=== PATIENT | male | born 1985 | race Caucasian/White ===

== ENCOUNTER 2019-08-28 16:48 | Emergency (ER) | payer SELFPAY ==
[2019-08-28 16:55] VITALS: BP 141/72; PULSE 86; TEMP 98.5; BMI 32.3
--- NOTE | 2019-08-28 16:55 | PDOC ---
Rapid Medical Evaluation Chief Complaint: Eye Problem Time Seen by Provider: 08/28/19 16:54 Medical Evaluation: 08/28/19 16:55 have performed a brief in-person evaluation of this patient. The patient presents with a chief complaint of: URI w/ b/l conjunctival erythema Pertinent physical exam findings:stable I have ordered the following:nothing The patient will proceed to the ED for further evaluation. Discharge Disposition - Diagnosis Conjunctivitis Qualifiers: Conjunctivitis type: unspecified Laterality: bilateral Qualified Code(s): H10.9 - Unspecified conjunctivitis - Referrals - Patient Instructions - Post Discharge Activity
[2019-08-28] MEDS ORDERED: ACETAMINOPHEN 500 MG TABLET (FP) PO ONE (17:19)
--- NOTE | 2019-08-28 17:19 | PDOC ---
History of Present Illness - General Chief Complaint: Eye Problem Stated Complaint: eye redness Time Seen by Provider: 08/28/19 16:54 - History of Present Illness Initial Comments: 08/28/19 17:16 33-year-old male without comorbidities presents for bilateral eye irritation sinus pressure and headache x1 day without systemic symptoms or changes in vision Past History - Past Medical History Allergies/Adverse Reactions: Allergies Allergy/AdvReac Type Severity Reaction Status Date / Time No Known Allergies Allergy Verified 08/28/19 16:55 Home Medications: Ambulatory Orders Budesonide [Rhinocort Allergy] 1 spray NS ONCE #1 spray.pump 08/28/19 Cetirizine HCl/Pseudoephedrine [Zyrtec-D Tablet] 1 each PO DAILY #30 tab.er.12h 08/28/19 COPD: No - Psycho Social/Smoking Cessation Hx Smoking History: Never smoked Information on smoking cessation initiated: No Hx Alcohol Use: No Drug/Substance Use Hx: No Review of Systems - Review of Systems Constitutional: No: Chills, Fever, Malaise, Night Sweats HEENTM: Yes: See HPI. No: Blurred Vision, Recent change in vision, Nose Congestion Neurological: Yes: Headache *Physical Exam - Vital Signs Last Vital Signs Temp Pulse Resp BP Pulse Ox 98.5 F 86 19 141/72 100 08/28/19 16:53 08/28/19 16:53 08/28/19 16:53 08/28/19 16:53 08/28/19 16:53 - Physical Exam 08/28/19 17:16 GENERAL: The patient is awake, alert, and fully oriented, in no acute distress. HEAD: Normal with no signs of trauma. EYES: sclera anicteric, conjunctiva mildly injected ENT: Ears normal tympanic membranes normal oropharynx clear uvula midline NECK: Normal range of motion LUNGS: Breath sounds equal, clear to auscultation bilaterally. No wheezes, and no crackles. HEART: S1 and S2 without murmur, rub or gallop. ABDOMEN: Soft, nontender, normoactive bowel sounds. No guarding, no rebound. No masses. EXTREMITIES: Normal range of motion, no edema. No clubbing or cyanosis. No cords, erythema, or tenderness. NEUROLOGICAL: Cranial nerves II through XII grossly intact. PSYCH: Normal mood, normal affect. SKIN: Warm, Dry, normal turgor, no rashes or lesions noted. Medical Decision Making - Medical Decision Making 08/28/19 17:16 Antihistamine eyedrops for allergic conjunctivitis steroidal nasal spray and decongestant follow-up with primary care physician Discharge - Discharge Information Problems reviewed: Yes Clinical Impression/Diagnosis: Allergic conjunctivitis, Allergic rhinitis, Headache Condition: Stable Disposition: HOME - Admission No - Additional Discharge Information Prescriptions: Budesonide [Rhinocort Allergy] 1 spray NS ONCE #1 spray.pump Cetirizine HCl/Pseudoephedrine [Zyrtec-D Tablet] 1 each PO DAILY #30 tab.er.12h Olopatadine HCl [Pataday] 1 drop OU DAILY #1 bottle - Follow up/Referral Referrals: Sherri Riggs MD [Staff Physician] - - Patient Discharge Instructions Additional Instructions: Please use the antihistamine eyedrops, oral antihistamine with decongestant, and steroidal nasal spray as directed. Return to the emergency room for worsening symptoms. May take Tylenol and Motrin for headache as directed. Without fail follow-up with internal medicine in 2 to 3 days for further evaluation and treatment options. - Post Discharge Activity
[2019-08-28] MEDS ORDERED: ACETAMINOPHEN 500 MG TABLET (FP) ONE (17:21)
== END 2019-08-28 17:25 | disposition home or self-care (01) ==
LOC: JERFT 16:48
DX: H10.10 Acute atopic conjunctivitis, unspecified eye (principal); J30.9 Allergic rhinitis, unspecified
CPT/HCPCS: 99283-25